=== PATIENT | male | born 1985 | race Caucasian/White ===

== ENCOUNTER 2020-07-16 15:46 | Outpatient (REF) | payer OTHER, SELFPAY | END 2020-07-16 15:47 | disposition home or self-care (01) | LOC: HO.LAB 15:46 | PROVIDERS: Visit Provider Internal Medicine | DX: Z20.828 Contact with and (suspected) exposure to other viral communicable diseases (principal) | CPT/HCPCS: C9803; U0003 ==

== ENCOUNTER 2025-04-20 16:05 | Emergency (ER) | payer OTHER, SELFPAY ==
--- NOTE | ~2025-04-20 | XR_ITS ---
EXAMINATION: XR ELBOW, LEFT CLINICAL INFORMATION: pain, injury COMPARISON: None available. TECHNIQUE: AP, lateral, and oblique views of the left elbow. FINDINGS: Fat pads are not displaced. No fracture line is apparent. No degenerative changes are present. XR/XR elbow LT min 3V IMPRESSION: Unremarkable left elbow Electronically signed by: Sne Jacobo MD 04/20/2025 04:51 PM EDT RP
--- NOTE | ~2025-04-20 | XR_ITS ---
EXAMINATION: XR KNEE, LEFT CLINICAL INFORMATION: pain, injury COMPARISON: None available. TECHNIQUE: Four views of the left knee. FINDINGS: There is a transverse fracture through the lower pole of patella extending to the articular surface with minimal distraction. There is a joint effusion. No other abnormalities are evident. XR/XR knee LT 3V IMPRESSION: Transverse intra-articular fracture of the lower pole patella with an associated joint effusion. Electronically signed by: Sen Jacobo MD 04/20/2025 04:52 PM EDT
--- NOTE | ~2025-04-20 | CT_ITS ---
CLINICAL HISTORY: pain, injury CT head without contrast Comparison: None provided Findings: No intra-axial mass, midline shift, hydrocephalus, or acute hemorrhage. No significant atrophy-like change or white matter disease. There is no sinus or mastoid fluid. The orbits are unremarkable. No skull fracture. IMPRESSION: No skull fracture or intracranial hemorrhage. This document has been electronically signed by: Sandie Nick MD on 04/20/2025 18:14:02
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
[2025-04-20 16:13] VITALS: BP 109/56; BP 112/62; PULSE 60; RESP 18; TEMP 36.8; O2SAT 96; O2SAT 97; BMI 25.8
--- OUTSIDE RECORDS SUMMARY | 2025-04-20 17:08 | XMS_ITS | Patient Health Record ---
Author Organization [facility] Address [address] [place] [id number] Care Team Providers Care Bottler Helper Name Role Phone ROYA POND Primary Care Provider Unav ailJuventino Becerra Unavailable [phone] Allergies Allergen (clinical drug ingredient) Drug/Non Drug Allergy documented on EMR Reaction Allergy Type Onset Date Status Penicillin Unknown Drug Allergy Active Reason For Referral No Information Medications Medication SIG (Take, Route, Fr equency, Duration) Notes Start Date End Date Status Omeprazole 20 MG TAKE ONE CAPSULE BY MOUTH TWICE A DAY for 30 Active Problems Problem Type SNOMED Code ICD Code Onset Dates Problem Status W/U Status Risk Notes Problem 82211466 Hiatal hernia (K44.9) Active confirmed Problem 514801252 GERD with esophagitis (K21.0) Active confirmed Problem 85250602 Esophagitis, erosive (K22.10) Active confirmed Plan Of Treatment Pending Test Test Name Order Date Esophageal Motility study 11/13/2015 UPPER GI ENDOSCOPY 04/15/2012 Future Test Test Name Order Date UPPER GI ENDOSCOPY 11/13/2015 Insurance Providers Payer Name Payer Address Payer Phone Subscriber Number Group Number Insured Name Patient Relationship to Insured Coverage Start Date Coverage End Date [facility] [address] [place] [phone] [id number] KARRI TRIPLETT Self - patient is the insured Medical (General) History Medical History History ICD Code Denies SC,DM,CVA,Lung disease,renal dise ase Arthritis-hands,knees, and feet upper endoscopy in April 05 with the finding of a moderate sized hiatal hernia and erosive esophagitis-biopsies were negative for Layton's esophagus In 12/2012 a 24 hour pH study was positive off meds, but a motility study showed ineffective esophageal peristalsis--the lower esophageal sphincter had normal relaxation In 04/2014--F/U motility show ed a low LES pressure with normal relaxation, normal esophageal peristalsis,and bordrline ineffective esophageal motility
[2025-04-20 18:23] VITALS: BP 109/56; PULSE 60; RESP 18; TEMP 36.8; O2SAT 96
== END 2025-04-20 18:24 | disposition home or self-care (01) ==
PROVIDERS: Emergency Provider Emergency Medicine
DX: S82.002A Unspecified fracture of left patella, initial encounter for closed fracture (principal); S00.83XA Contusion of other part of head, initial encounter; M25.562 Pain in left knee; M25.561 Pain in right knee; M25.522 Pain in left elbow; R51.9 Headache, unspecified; V43.52XA Car driver injured in collision with other type car in traffic accident, initial encounter; Y93.9 Activity, unspecified; Y92.410 Unspecified street and highway as the place of occurrence of the external cause; Y99.8 Other external cause status
CPT/HCPCS: 29505; 70450; 73080; 73562; 99283; 99284

== ENCOUNTER → 2025-04-20 16:17 | Outpatient (BNV) | payer OTHER, SELFPAY | PROVIDERS: Visit Provider Radiology Diagnostic Radiology | DX: R51.9 Headache, unspecified (principal); S82.032A Displaced transverse fracture of left patella, initial encounter for closed fracture; M25.522 Pain in left elbow | CPT/HCPCS: 70450; 73080; 73562 ==

== ENCOUNTER 2025-04-28 08:25 | Outpatient (REF) | payer OTHER, SELFPAY ==
--- NOTE | ~2025-04-28 | XR_ITS ---
EXAMINATION: XR KNEE, LEFT CLINICAL INFORMATION: M25.562 - Pain in left knee COMPARISON: None available. TECHNIQUE: AP and lateral views of the left knee. FINDINGS: Joint spaces are preserved. There are no osteophytes. There is a joint effusion. There is a transverse fracture across the patella at the junction of mid third and lower third patella extending into the articular surface. XR/XR knee LT 2V IMPRESSION: There is a transverse fracture involving the lower third patella extending into the articular surface. Joint effusion. Ortho Oncall notified via [place] Text at 2:50 PM Eastern time Electronically signed by: Sen Jacobo MD 04/28/2025 02:49 PM EDT
--- OUTSIDE RECORDS SUMMARY | 2025-04-28 08:53 | XMS_ITS | Patient Health Record ---
Author Organization [facility] Address [address] [place] [id number] Care Team Providers Care Senior Commissary Agent Name Role Phone ROYA POND Primary Care Provider Unav ailJuventino Becerra Unavailable [phone] Allergies Allergen (clinical drug ingredient) Drug/Non Drug [...] Problem Status W/U Status Risk Notes Problem 11924318 Hiatal hernia (K44.9) Active confirmed Problem 169647025 GERD with esophagitis (K21.0) Active confirmed Problem 08919246 Esophagitis, erosive (K22.10) Active confirmed Plan Of Treatment Pending Test Test Name Order Date Esophageal Motility study 11/13/2015 UPPER GI ENDOSCOPY 04/15/2012 Future Test Test Name Order Date UPPER GI ENDOSCOPY 11/13/2015 Insurance Providers Payer Name Payer Address Payer Phone Subscriber Number Group Number Insured Name Patient Relationship to Insured Coverage Start Date Coverage End Date [facility] [address] [place] [phone] [id number] KARRI TRIPLETT Self - patient is the insured Medical (General) History Medical History History ICD Code Denies MA,DM,CVA,Lung disease,renal dise ase Arthritis-hands,knees, and feet upper [...]
== END 2025-04-28 08:26 | disposition home or self-care (01) ==
LOC: HO.HOSX 08:25
PROVIDERS: Visit Provider Physician Assistant
DX: S82.002A Unspecified fracture of left patella, initial encounter for closed fracture (principal); W22.8XXA Striking against or struck by other objects, initial encounter; Y92.810 Car as the place of occurrence of the external cause
CPT/HCPCS: 73560

== ENCOUNTER 2025-04-28 14:31 | Outpatient (AMB) | payer OTHER, SELFPAY ==
[2025-04-28 14:38] VITALS: BMI 25.8
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
== END 2025-04-28 14:52 | disposition home or self-care (01) ==
LOC: HO.HOS 14:32
PROVIDERS: Visit Provider Physician Assistant
DX: S82.002A Unspecified fracture of left patella, initial encounter for closed fracture (principal)
CPT/HCPCS: 99203; G2211

== ENCOUNTER → 2025-04-28 14:34 | Outpatient (BNV) | payer OTHER, SELFPAY | PROVIDERS: Visit Provider Radiology Diagnostic Radiology | DX: S82.012A Displaced osteochondral fracture of left patella, initial encounter for closed fracture (principal) | CPT/HCPCS: 73560 ==

== ENCOUNTER 2025-05-17 12:28 | Outpatient (REF) | payer OTHER, SELFPAY ==
--- NOTE | ~2025-05-17 | XR_ITS ---
EXAMINATION: XR KNEE, LEFT CLINICAL INFORMATION: M25.562 - Pain in left knee COMPARISON: 04/28/2025, 04/20/2025. TECHNIQUE: Two views of the left knee. FINDINGS: Transverse patellar fracture again noted, essentially nondisplaced. Fracture lines well defined without gross bony callus formation at this time. No additional fracture or focal bone lesion. Joint spaces are preserved. Alignment is anatomic. There is a suprapatellar joint effusion. There is similar anterior soft tissue swelling. XR/XR knee LT 2V IMPRESSION: No significant change in the transverse nondisplaced patellar fracture. Electronically signed by: Kieran Jo MD 05/17/2025 02:57 PM EDT
--- OUTSIDE RECORDS SUMMARY | 2025-05-18 13:59 | XMS_ITS | Patient Health Record ---
Author Organization [facility] Address [address] [place] [address] Care Team Providers Care Animal Care Provider Name Role Phone ROYA POND Primary Care Provider Unav ailJuventino Becerra Unavailable [phone] Allergies Allergen (clinical drug ingredient) Drug/Non Drug [...] Problem Status W/U Status Risk Notes Problem [id number] Hiatal hernia (K44.9) Active confirmed Problem [id number] GERD with esophagitis (K21.0) Active confirmed Problem 52964158 Esophagitis, erosive (K22.10) Active confirmed Plan Of Treatment Pending Test Test Name Order Date Esophageal Motility study 11/13/2015 UPPER GI ENDOSCOPY 04/15/2012 Future Test Test Name Order Date UPPER GI ENDOSCOPY 11/13/2015 Insurance Providers Payer Name Payer Address Payer Phone Subscriber Number Group Number Insured Name Patient Relationship to Insured Coverage Start Date Coverage End Date [facility] [address] [place] [phone] [id number] KARRI TRIPLETT Self - patient is the insured Medical (General) History Medical History History ICD Code Denies [place],DM,CVA,Lung disease,renal dise ase Arthritis-hands,knees, and feet upper [...]
== END 2025-05-17 12:29 | disposition home or self-care (01) ==
LOC: HO.HOSX 12:28
PROVIDERS: Visit Provider Physician Assistant
DX: S82.002D Unspecified fracture of left patella, subsequent encounter for closed fracture with routine healing (principal); X58.XXXD Exposure to other specified factors, subsequent encounter
CPT/HCPCS: 73560; 99212

== ENCOUNTER 2025-05-17 14:03 | Outpatient (AMB) | payer OTHER, SELFPAY ==
--- NOTE | 2025-05-17 14:19 | MHC.OFFVIS ---
Vital Signs 05/17/25 14:24 Height 5 ft 10 in Weight 180 lb BMI 25.8 Intake Visit Reasons: OV-2wk f/u t patella fx w xrays Intake Note: Eddi is a 40 year old male who presents today for a follow up of left patella fracture, DOI 04/20/25. At his last visit he was instructed to continue use of knee immobilizer, he should refrain from bending his knee and follow up in 2 weeks with x-rays. Today patient reports his knee is feeling a little better however he continues to have discomfort. Current work restrictions is to remain out of work. Functional Mental Disability Teacher Required: Yes Functional Mental Disability Teacher Services: Functional Mental Disability Teacher Present Functional Mental Disability Teacher Name: [place] ID#[id number] Allergies Penicillins (PENICILLINS) Allergy (Unknown, Verified 05/17/25 14:24) UNKNOWN Penicillin V Potassium Allergy (Unknown, Uncoded 05/17/25 14:24) Unknown Medication List - Last Reconciled 05/17/25 by Edith Sagastume PA-C No Known Home Meds HPI HPI OV-2wk f/u t patella fx w xrays: Details: 40-year-old gentleman returns to the office today 2 week follow-up status post left patellar fracture. The patient states he has been wearing the knee immobilizer weightbearing as tolerated. He did remove the brace twice but was cautious to not let his knee bend. 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 No significant tenderness to palpation. Calf is supple and nontender neurovascularly intact. Results Reviewed Results Reviewed: X-rays of the left knee obtained in the office today and reviewed by me show a nondisplaced patellar fracture through the inferior pole of the patella. Assessment & Plan Assessment & Plan (1) Left patella fracture: Code(s): S82.002A - Unspecified fracture of left patella, initial encounter for closed fracture Category: Medical Plan: The patient was transitioned to an ACL brace which was locked 0-15 degrees. No bending beyond 15 degrees. He should not remove the brace to bend at all. I did explain there is any force on the knee or bending he may displace the fracture which would then require surgical intervention. He will weightbear as tolerated with crutches. He will remain out of work until I see him back for a follow up with should be expected to be out of work for up to 6 weeks as he can not drive. The patient will see me back in 2 weeks with x-rays, sooner if needed. Orders: Orders XR knee LT 2V Today M25.562 - Pain in left knee Coding Level of Care Code Global (25932) Diagnoses Left patella fracture S82.002A
[2025-05-17 14:24] VITALS: BMI 25.8
== END 2025-05-17 15:17 | disposition home or self-care (01) ==
LOC: HO.HOS 14:04
PROVIDERS: Visit Provider Physician Assistant
DX: S82.002A Unspecified fracture of left patella, initial encounter for closed fracture (principal)
CPT/HCPCS: 99213

== ENCOUNTER → 2025-05-17 14:09 | Outpatient (BNV) | payer OTHER, SELFPAY | PROVIDERS: Visit Provider Radiology Diagnostic Radiology | DX: M25.462 Effusion, left knee (principal) | CPT/HCPCS: 73560 ==

== ENCOUNTER 2025-05-31 08:23 | Outpatient (REF) | payer OTHER, SELFPAY ==
--- NOTE | ~2025-05-31 | XR_ITS ---
EXAMINATION: XR KNEE, LEFT CLINICAL INFORMATION: M25.562 - Pain in left knee COMPARISON: 05/17/2025, 04/28/2025, 04/20/2025. TECHNIQUE: Two views of the left knee. FINDINGS: Transverse patellar fracture again noted, essentially nondisplaced. Fracture lines less distinct without gross bony callus formation at this time. Findings likely indicate early healing. No additional fracture or focal bone lesion. Joint spaces are preserved. Alignment is anatomic. There is a suprapatellar joint effusion. There is mildly improving anterior soft tissue swelling. XR/XR knee LT 2V IMPRESSION: Transverse nondisplaced patellar fracture with evidence of early healing. Stable joint effusion. Electronically signed by: Kieran Jo MD 05/31/2025 11:54 AM EDT
--- OUTSIDE RECORDS SUMMARY | 2025-06-01 08:39 | XMS_ITS | Patient Health Record ---
Author Organization [facility] Address [address] [place] [address] Care Team Providers Care Chief Station Engineer Name Role Phone ROYA POND Primary Care Provider Unav ailable Juventino Estrella Unavailable [phone] Allergies Allergen (clinical drug ingredient) Drug/Non Drug [...] W/U Status Risk Notes Problem Hiatal hernia (54966212) Hiatal hernia (K44.9) Active confirmed Problem Gastroesophageal reflux disease with esophagitis (disorder) (779381337) GERD with esophagitis (K21.0) Active confirmed Problem Ulcer of esophagus (18146599) Esophagitis, erosive (K22.10) Active confirmed Plan Of Treatment Pending Test Test Name Order Date Esophageal Motility study 11/13/2015 UPPER GI ENDOSCOPY 04/15/2012 Future Test Test Name Order Date UPPER GI ENDOSCOPY 11/13/2015 Insurance Providers Payer Name Payer Address Payer Phone Subscriber Number Group Number Insured Name Patient Relationship to Insured Coverage Start Date Coverage End Date [facility] [address] [place] [phone] [id number] KARRI TRIPLETT Self - patient is the insured Medical (General) History Medical History History ICD Code Denies [place],DM,CVA,Lung disease,renal dise ase Arthritis-hands,knees, and feet upper [...]
== END 2025-05-31 08:24 | disposition home or self-care (01) ==
LOC: HO.HOSX 08:23
PROVIDERS: Visit Provider Physician Assistant
DX: S82.035D Nondisplaced transverse fracture of left patella, subsequent encounter for closed fracture with routine healing (principal); X58.XXXA Exposure to other specified factors, initial encounter
CPT/HCPCS: 73560

== ENCOUNTER 2025-05-31 10:45 | Outpatient (AMB) | payer OTHER, SELFPAY ==
--- NOTE | 2025-05-31 10:56 | MHC.OFFVIS ---
Intake Visit Reasons: ov- left patella fracture, DOI 04/20/25 Intake Note: Eddi is a 40 year old male who presents today for a follow up of left patella fracture, DOI 04/20/25. At his last visit he was transitioned into an ACL brace, no bending beyond 15 degrees. He will follow up in 2 weeks with x-rays. His current work status is to remain out of work. Today patient reports he is doing well, states improvement since his last visit. Allergies Penicillins (PENICILLINS) Allergy (Unknown, Verified 05/17/25 14:24) UNKNOWN Penicillin V Potassium Allergy (Unknown, Uncoded 05/17/25 14:24) Unknown Medication List - Last Reconciled 05/31/25 by Edith Sagastume PA-C No Known Home Meds HPI HPI ov- left patella fracture, DOI 04/20/25: Details: 40-year-old gentleman returns to the office today for left patella fracture date of injury 04/20/2025. He continues to use the ACL [id number] brace with limited motion. He denies pain. 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 No significant tenderness to palpation. Calf is supple and nontender neurovascularly intact. Results Reviewed Results Reviewed: X-rays of the left knee obtained in the office today and reviewed by me show a nondisplaced patellar fracture through the inferior pole of the patella with interval healing. Assessment & Plan Assessment & Plan (1) Left patella fracture: Code(s): S82.002A - Unspecified fracture of left patella, initial encounter for closed fracture Category: Medical Qualifiers: Encounter type: subsequent encounter Fracture type: closed Fracture morphology: transverse Fracture alignment: nondisplaced Fracture healing: with routine healing Qualified Code(s): S82.035D - Nondisplaced transverse fracture of left patella, subsequent encounter for closed fracture with routine healing Plan: Patient will begin physical therapy to work on range of motion increasing his range of motion 15 degrees each week. He will work on quad exercises. He will remain out of work until I see him back in 6 weeks with x-rays, sooner if needed. Orders: Orders XR knee LT 2V Today M25.562 - Pain in left knee PT Evaluation and Treatment Today S82.002A - Unspecified fracture of left patella, initial encounter for closed fracture Coding Level of Care Code Global (94384) Diagnoses Closed nondisplaced transverse fracture of left patella with routine healing, subsequent encounter S82.035D Encounter type: subsequent encounter Fracture type: closed Fracture morphology: transverse Fracture alignment: nondisplaced Fracture healing: with routine healing
--- OUTSIDE RECORDS SUMMARY | 2025-05-31 12:57 | XMS_ITS | Patient Health Record ---
Author Organization [facility] Address [address] [place] [address] Care Team Providers Care Assistant Superintendent Name Role Phone ROYA POND Primary Care Provider Unav ailable Juventino Estrella Unavailable [phone] Allergies Allergen (clinical drug ingredient) Drug/Non Drug Allergy documented on EMR Reaction Allergy Type Onset Date Status Penicillin Unknown Drug Allergy Active Reason For Referral No Information Medications Medication SIG (Take, Route, Fr equency, Duration) Notes Start Date End Date Status Omeprazole 20 MG TAKE ONE CAPSULE BY MOUTH TWICE A DAY; Duration: 30 Active Problems Problem Type SNOMED Code ICD Code Onset Dates Problem Status W/U Status Risk Notes Problem Hiatal hernia (82351497) Hiatal hernia (K44.9) Active confirmed Problem Gastroesophageal reflux disease with esophagitis (disorder) (398984869) GERD with esophagitis (K21.0) Active confirmed Problem Ulcer of esophagus (00317281) Esophagitis, erosive (K22.10) Active confirmed Plan Of Treatment Pending Test Test Name Order Date Esophageal Motility study 11/13/2015 UPPER GI ENDOSCOPY 04/15/2012 Future Test Test Name Order Date UPPER GI ENDOSCOPY 11/13/2015 Insurance Providers Payer Name Payer Address Payer Phone Subscriber Number Group Number Insured Name Patient Relationship to Insured Coverage Start Date Coverage End Date [facility] [address] [place] [phone] [id number] KARRI TRIPLETT Self - patient is the insured Medical (General) History Medical History History ICD Code Denies [place],DM,CVA,Lung disease,renal dise ase Arthritis-hands,knees, and feet upper [...]
== END 2025-05-31 11:11 | disposition home or self-care (01) ==
LOC: HO.HOS 10:46
PROVIDERS: Visit Provider Physician Assistant
DX: S82.035D Nondisplaced transverse fracture of left patella, subsequent encounter for closed fracture with routine healing (principal)
CPT/HCPCS: 99213

== ENCOUNTER → 2025-05-31 10:48 | Outpatient (BNV) | payer OTHER, SELFPAY | PROVIDERS: Visit Provider Radiology Diagnostic Radiology | DX: S82.035D Nondisplaced transverse fracture of left patella, subsequent encounter for closed fracture with routine healing (principal) | CPT/HCPCS: 73560 ==

== ENCOUNTER 2025-08-02 07:38 | Outpatient (REF) | payer OTHER, SELFPAY ==
--- NOTE | ~2025-08-02 | XR_ITS ---
EXAMINATION: XR KNEE, LEFT CLINICAL INFORMATION: M25.562 - Pain in left knee COMPARISON: 05/31/2025. TECHNIQUE: Two views of the left knee. FINDINGS: Essentially healed fracture of the mid patella present on lateral projection. Bony fusion through the fracture line. There is mild spurring of the upper patella. No acute fracture, dislocation, or suspicious bone lesion. Joint spaces are maintained. Alignment is anatomic. There is no significant suprapatellar joint effusion. Soft tissues appear normal. XR/XR knee LT 2V IMPRESSION: 1. Essentially healed fracture of the patella. 2. Otherwise normal examination. Electronically signed by: Kieran Jo MD 08/02/2025 08:57 AM EST
--- OUTSIDE RECORDS SUMMARY | 2025-08-02 07:41 | XMS_ITS | Patient Health Record ---
Author Organization [facility] Address [address] [place] [address] Care Team Providers Care Environmental Engineering Intern Name Role Phone ROYA POND Primary Care Provider Unav Juventino Valente Unavailable [phone] Allergies Allergen (clinical drug ingredient) Drug/Non Drug Allergy documented on EMR Reaction Allergy Type Onset Date Status Penicillin Unknown Drug Allergy Active Reason For Referral No Information Medications Medication SIG (Take, Route, Frequency, Duration) Notes Start Date End Date Status Omeprazole 20 MG Capsule Delayed Release TAKE ONE CAPSULE BY MOUTH TWICE A DAY; Duration: 30 Active Social History Social History Additional Details Category Social Info Options Details Miscellaneous: Marital status: Occupation: unemployed Caffeine: No coffee, no te a, only occasional soda Section Notes: Nonsmoker; no sig. alcohol Nonsmoker; no sig. alcohol Nonsmoker; no sig. alcohol Nonsmoker; no sig. alcohol Nonsmoker; no sig. alcohol Nonsmoker; no sig. alcohol Problems Problem Type SNOMED Code ICD Code Onset Dates Problem Status W/U Status Risk Notes Problem Hiatal hernia (42513131) Hiatal hernia (K44.9) Active confirmed Problem Gastroesophageal reflux disease with esophagitis (disorder) (267287658) GERD with esophagitis (K21.0) Active confirmed Problem Ulcer of esophagus (53008286) Esophagitis, erosive (K22.10) Active confirmed Plan Of Treatment Pending Test Test Name Order Date Esophageal Motility study 11/13/2015 UPPER GI ENDOSCOPY 04/15/2012 Future Test Test Name Order Date UPPER GI ENDOSCOPY 11/13/2015 Insurance Providers Payer Name Payer Address Payer Phone Subscriber Number Group Number Insured Name Patient Relationship to Insured Coverage Start Date Coverage End Date MEDICAID OF [facility] [address] [place] [phone] [id number] KARRI TRIPLETT Self - patient is the insured Medical (General) History Medical History History ICD Code Denies [place],DM,CVA,Lung disease,renal dise ase Arthritis-hands,knees, and feet upper [...]
== END 2025-08-02 07:39 | disposition home or self-care (01) ==
LOC: HO.HOSX 07:38
PROVIDERS: Visit Provider Physician Assistant
DX: Z47.89 Encounter for other orthopedic aftercare (principal); S82.035D Nondisplaced transverse fracture of left patella, subsequent encounter for closed fracture with routine healing; X58.XXXD Exposure to other specified factors, subsequent encounter
CPT/HCPCS: 73560

== ENCOUNTER 2025-08-02 08:46 | Outpatient (AMB) | payer OTHER, SELFPAY ==
--- NOTE | 2025-08-02 08:55 | MHC.OFFVIS ---
Intake Visit Reasons: ov- left patella fracture, DOI 04/20/25 w/ xray Intake Note: Eddi is a 40 year old male who presents today for a follow up of his left patella fracture, DOI 04/20/25. Today patient reports discomfort with bending of his knee while in a sitting position. He has to extend his leg to make it feel better. He continues to attend therapy, stating he did miss 2 visits due to transportation reasons. Allergies Penicillins (PENICILLINS) Allergy (Unknown, Verified 08/02/25 09:03) UNKNOWN Penicillin V Potassium Allergy (Unknown, Uncoded 08/02/25 09:03) Unknown Medication List - Last Reconciled 08/02/25 by Edith Sagastume PA-C No Known Home Meds HPI Comments Details: History of Present Illness The patient is a 40 year old male presenting for follow-up left knee patella fx which occurred on April 20. He reports experiencing knee pain when lifting heavy items or when his knee is bent for an extended period. He notes pain the day after his physical therapy sessions. The patient is attending physical therapy but missed two recent appointments. He has future therapy appointments scheduled. 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 No significant tenderness to palpation. Calf is supple and nontender neurovascularly intact. Results Reviewed Results Reviewed: X-rays of the left knee obtained in the office today and reviewed by me show a nondisplaced patellar fracture through the inferior pole of the patella with interval healing. Assessment & Plan Assessment & Plan (1) Left patella fracture: Code(s): S82.002A - Unspecified fracture of left patella, initial encounter for closed fracture Category: Medical Qualifiers: Encounter type: subsequent encounter Fracture type: closed Fracture morphology: transverse Fracture alignment: nondisplaced Fracture healing: with routine healing Qualified Code(s): S82.035D - Nondisplaced transverse fracture of left patella, subsequent encounter for closed fracture with routine healing Plan 1. Patellar Fracture The patient is 3.5 months post-injury from a patellar fracture on April 20. Radiographs from today show the fracture is filling in nicely and is stable with a low concern for displacement. The pain he experiences with bending and certain activities is attributed to cartilage irritation behind the kneecap secondary to the fracture. The plan is for the patient to continue with physical therapy and strengthening exercises. He is advised to use NSAIDs such as ibuprofen or naproxen for irritation, suggesting he take it before therapy to mitigate post-session inflammation. If pain persists for more than one day after exercise, he should reduce the intensity. If symptoms worsen significantly over the next three months, a cortisone injection could be considered. Consent Patient was informed and verbally consented to the use of an ambient scribe for clinic note documentation during this visit. Orders: Orders XR knee LT 2V Today M25.562 - Pain in left knee Coding Level of Care Code Est Pt Level 3 (60068) Add On Problem Visit Only Diagnoses Closed nondisplaced transverse fracture of left patella with routine healing, subsequent encounter S82.035D Encounter type: subsequent encounter Fracture type: closed Fracture morphology: transverse Fracture alignment: nondisplaced Fracture healing: with routine healing
== END 2025-08-02 09:21 | disposition home or self-care (01) ==
LOC: HO.HOS 08:46
PROVIDERS: Visit Provider Physician Assistant
DX: S82.035D Nondisplaced transverse fracture of left patella, subsequent encounter for closed fracture with routine healing (principal)
CPT/HCPCS: 99213; G2211

== ENCOUNTER → 2025-08-02 08:47 | Outpatient (BNV) | payer OTHER, SELFPAY | PROVIDERS: Visit Provider Radiology Diagnostic Radiology | DX: M25.562 Pain in left knee (principal) | CPT/HCPCS: 73560 ==

== ENCOUNTER 2025-08-03 16:00 | Outpatient (RCR) | payer OTHER, SELFPAY ==
--- NOTE | 2025-07-05 11:48 | MHC.PT.EP ---
[facility] [place] Office [place] Office [place] Office [address] Angelique Geiger [address] [phone] F: [phone] F: [phone] F: [phone] F: [phone] Physical Therapy Plan of Care Date of Evaluation: 07/05/25 Date of Surgery: N/A Diagnosis: left patella fracture (RL) DOI 04/20/25 Assessment: pt is a 40 y/o male presenting to physical therapy w/ referring diagnosis of left patella fracture. Spoke w/ ortho PA who agrees w/ D/C of brace given he has good quad control as determined by myself. Impairments include pain, decreased range of motion, decreased strength, impaired functional mobility, impaired postural awareness, and altered ambulation mechanics. pt is a good candidate for skilled PT due to age, potential remediation of impairments, typical disease/condition progression and prognosis, comorbidities, and motivation. pt would benefit from skilled PT intervention to provide a tailored strengthening and stretching exercise program, functional training, gait training, postural re-training, neuromuscular re-education, modalities as needed for pain, equipment safety demonstration. Frequency and Duration: The patient will be seen 2x/wk for 4 wks Short Term Goals: pt will be I w/ HEP to promote self-management of condition. pt will improve L quad strength by 1 MMT grade to promote ease in sit<>stand transfers. Doctor Podiatric Medicine Goals: pt will ascend/descend at least 12 stairs w/ reciprocal pattern to promote ease in accessing apartment. pt will demo proper lifting mechanics w/o verbal cueing w/ 50# object x10 reps to promote return to full duty work. Treatment Plan: Modalities to reduce pain, spasms and effusion. Manual therapy to restore motion and function. Therapeutic exercise to improve strength and flexibility. Neuromuscular re-education for posture and balance. Therapeutic activities to return to functional activities of daily living. Electronically signed by: Ania Leary PT, DPT Please sign and return to therapist. Thank you for your referral.
--- NOTE | 2025-08-16 08:50 | MHC.PT.DC ---
[facility] Office [place] Office [place] Office [address] Angelique Geiger 140 [facility] [phone] F: [phone] F: [phone] F: [phone] F: [phone] Physical Therapy Discharge Report Diagnosis: left patella fracture (RL) DOI 04/20/25 Date of Surgery: N/A Date of Evaluation: 07/05/25 Date of Discharge: 08/16/25 Treatments to Date: 5 Cancellations to Date: 2 No Shows to Date: 3 Discharge Status: Visit Non-compliance Discharge Summary: The patient has been non-compliant with attendance here at [facility]. He is now discharged from this plan of care. Electronically signed by: Ania Leary PT, DPT Please sign and return to therapist. Thank you for your referral.
== END 2025-08-16 08:50 | disposition home or self-care (01) ==
LOC: HO.PT 16:00
PROVIDERS: Visit Provider Physician Assistant
DX: S82.002D Unspecified fracture of left patella, subsequent encounter for closed fracture with routine healing (principal); X58.XXXD Exposure to other specified factors, subsequent encounter
CPT/HCPCS: 97110; 97161; 97530